=== PATIENT | male | born 1960 | race Caucasian/White ===

== ENCOUNTER → 2019-04-12 | Day surgery (SDC) | payer BC ==
[~2019-04-12] MED LIST: FENTANYL CITRATE/PF 100MCG/2 ML INJ ONE; HYOSCYAMINE 0.125 MG TAB ONE; INDOMETHACIN50 MG PO; LISINOPRIL10 MG PO; MIDAZOLAM HCL 2 MG/2 ML VIAL ONE; PROPOFOL IV EMULSION 10 MG/ML 50 ML VIAL ONE; SIMVASTATIN20 MG PO
--- NOTE | 2019-04-12 07:10 | NUR ---
SPIRITUAL CARE - Pre-Surgery Assessment: Pt in bed. Pt reported supportive attention from family and friends. Intervention: I provided pastoral presence, hospitality, and sympathetic listening. I acquainted pt with availability of basting machine operator while hospitalized. Outcome: Pt expressed appreciation for visit. No need for follow up indicated at this time. RAD[facility] Marrerolain Spiritual Care Department O: [phone] Pager: [phone] ([phone] calling from)
[2019-04-12 09:22] VITALS: BP 140/79
--- NOTE | 2019-04-12 15:38 | Operative Report ---
DATE OF PROCEDURE: 04/12/2019 SURGEON: Joe Grayson MD PROCEDURE: Colonoscopy with polypectomy note. INDICATIONS FOR COLONOSCOPY: Colorectal cancer screening. MEDICATION: The patient was done under MAC, please see anesthesiologist's note. PROCEDURE IN DETAIL: With the patient in left lateral decubitus position, a flexible fiberoptic Olympus colonoscope was inserted into the rectum with ease and advanced all the way to the cecum. Two minute polyps were removed per cold biopsy forceps from the cecum. The scope was then withdrawn slowly mucosa overlying the ascending and the transverse and descending appeared to be within normal limits. Diverticular disease was noted to involve the sigmoid colon. One polyp was snared from the rectum. The scope was then retroflexed into the distal rectum and moderate-sized internal hemorrhoids were noted none of which was actively bleeding. The scope was then straightened out the polypectomy site and the rectum was hemoclipped to prevent delayed bleeding. The scope was then withdrawn. The patient tolerated procedure well. IMPRESSION: 1. Cecal polyps x2, minute, removed per cold biopsy forceps. 2. Diverticulosis. 3. Rectal polyp, snared, and site hemoclipped. 4. Internal hemorrhoids, none actively bleeding. PLAN: Follow up histology. Initiate high-fiber, low-fat diet. Initiate high-fiber supplement. The patient might benefit from a followup colonoscopy in 3 to 5 years. Joe Grayson MD [facility] [place] /[id number] cc: Zach Campos DO
== END | disposition home or self-care (01) ==
LOC: OR 05:22
PROVIDERS: ATTEND Internal Medicine Gastroenterology
DX: Z12.11 Encounter for screening for malignant neoplasm of colon (principal); D12.0 Benign neoplasm of cecum; K62.1 Rectal polyp; K57.30 Diverticulosis of large intestine without perforation or abscess without bleeding; K64.8 Other hemorrhoids; K21.9 Gastro-esophageal reflux disease without esophagitis; I10 Essential (primary) hypertension; E78.5 Hyperlipidemia, unspecified; F17.210 Nicotine dependence, cigarettes, uncomplicated; Z01.810 Encounter for preprocedural cardiovascular examination
CPT/HCPCS: 45380; 45385; 93005; J2250; J2704; J3010; 45378; 45384